=== PATIENT | male | born 1945 | race Caucasian/White ===

== ENCOUNTER 2017-12-30 13:59 | Outpatient (CLI) | payer MEDICARE ==
--- NOTE | 2017-12-31 03:36 | XRAY Report ---
Procedure Date: 12/30/2017 Accession Number: [id number] / [id number] Procedure: XRS - Knee 3 View RT CPT Code: FULL RESULT: EXAM: Knee 3 View RT DATE: 12/30/2017 2:27 PM CLINICAL HISTORY: TRAUMATIC EFFUSION RT. KNEE COMPARISON: None. TECHNIQUE: 3 views. FINDINGS: Bones: Normal. No fractures or bone lesions. Joints: Moderate osteoarthritis. Moderate effusion. Soft Tissues: Normal. No soft tissue swelling. IMPRESSION: Moderate osteoarthritis, with a moderate effusion. No evidence of acute fracture. RADIA
== END 2017-12-30 14:00 | disposition home or self-care (01) ==
LOC: DI.S 13:59
PROVIDERS: ATTEND Internal Medicine
DX: M17.11 Unilateral primary osteoarthritis, right knee (principal); M25.461 Effusion, right knee

== ENCOUNTER 2019-06-27 17:00 | Emergency (ER) | payer MEDICARE, OTHER ==
[2019-06-27] MEDS ORDERED: ACETAMINOPHEN 1,000 MG/100 ML 100 ML IV STA (17:25)
[2019-06-27] MEDS ORDERED: SODIUM CHLORIDE 0.9% 1,000 ML IV ONE ×2 (17:25)
--- NOTE | 2019-06-27 17:32 | ED Physician Documentation ---
History of Present Illness - Stated complaint Stated Complaint: NECK PX - Chief complaint Chief Complaint: General - History obtained from History obtained from: Patient, Family - History of Present Illness Pain level max: 8 Pain level now: 8 Improved by: rest Worsened by: movement - Additonal information Additional information: 74-year-old male presents to the emergency department stating that he has been having headaches and neck pain for the past 3 weeks. Does not recall any trau ma. He saw his primary care provider today who referred him here for evaluation. His states that he has been feeling weak lately. Has had a dry cough. No fevers at home that they are aware of. Has not taken anything for the pain. No focal neurological deficits. No numbness or tingling. No recent travel. Review of Systems Ten Systems: 10 systems reviewed and negative Constitutional: reports: Fever Ears: denies: Ear pain Nose: denies: Rhinorrhea / runny nose, Congestion Throat: denies: Sore throat Cardiac: denies: Chest pain / pressure Respiratory: denies: Dyspnea, Cough Skin: denies: Rash Musculoskeletal: denies: Back pain Neurologic: denies: Focal weakness, Numbness PD PAST MEDICAL HISTORY - Past Medical History Past Medical History: No - Past Surgical History Past Surgical History: No - Present Medications Home Medications: Ambulatory Orders Medication Instructions Recorded Confirmed Cefdinir 300 mg PO BID #20 capsule 06/27/19 Cyclobenzaprine [Flexeril] 10 mg PO TID PRN #20 tablet 06/27/19 Meloxicam [Mobic] 15 mg PO DAILY #14 tablet 06/27/19 - Allergies Allergies/Adverse Reactions: Allergies Allergy/AdvReac Type Severity Reaction Status Date / Time No Known Drug Allergies Allergy Verified 06/27/19 17:07 - Living Situation Living Situation: reports: With family Living Arrangement: reports: At home - Family History Family history: reports: Non contributory PD ED PE NORMAL - Vitals Vital signs reviewed: Yes - General General: Alert and oriented X 3, No acute distress, Well developed/nourished - HEENT HEENT: PERRL, Ears normal, Moist mucous membranes, Pharynx benign - Neck Neck: Other (Very stiff neck, unable to turn his head much in any direction.) - Cardiac Cardiac: RRR, Strong equal pulses - Respiratory Respiratory: No respiratory distress, Clear bilaterally - Abdomen Abdomen: Soft, Non tender, Non distended - Derm Derm: Warm and dry - Extremities Extremities: No edema, No calf tenderness / cord - Neuro Neuro: Alert and oriented X 3, addiction therapist 2-12 intact, No motor deficit, No sensory deficit, Normal speech - Psych Psych: Normal mood, Normal affect Results - Vitals Vitals: Vital Signs - 24 hr 06/27/19 06/27/19 06/27/19 17:01 19:07 21:00 Temperature 39.4 C H 36.9 C 38.6 C H Heart Rate 70 74 Respiratory 18 20 Rate Blood Pressure 151/104 H 141/91 H O2 Saturation 97 94 Oxygen O2 Source Room air - Labs Labs: Microbiology 06/27/19 19:15 CSF Culture - Preliminary Cerebral Spinal Fluid Laboratory Tests 06/27/19 06/27/19 06/27/19 17:30 17:40 17:40 WBC 8.5 RBC 4.30 L Hgb 13.0 L Hct 40.6 L MCV 94.4 H MCH 30.2 MCHC 32.0 RDW 12.2 Plt Count 252 MPV 9.1 Neut # (Auto) 6.4 Lymph # (Auto) 0.9 L [place] # (Auto) 1.1 H Eos # (Auto) 0.1 Baso # (Auto) 0.0 Absolute Nucleated RBC 0.00 Nucleated RBC % 0.0 PT 14.4 H INR 1.3 H APTT 29.3 Sodium Potassium Chloride Carbon Dioxide Anion Gap BUN Creatinine Estimated GFR (MDRD) Glucose Lactic Acid Calcium Total Bilirubin AST ALT Alkaline Phosphatase Total Protein Albumin Globulin Albumin/Globulin Ratio Lipase Urine Color Urine Clarity Urine pH Ur Specific [place] Urine Protein Urine Glucose (UA) Urine Ketones Urine Occult Blood Urine Nitrite Urine Bilirubin Urine Urobilinogen Ur Leukocyte Esterase Urine RBC Urine WBC Ur Squamous Epith Cells Urine Bacteria Ur Microscopic Review Urine Culture Comments CSF Color CSF Clarity Xanthrochromic CSF WBC CSF RBC CSF Cell Count Tube # CSF Glucose CSF Total Protein Influenza A (Rapid) Negative Influenza B (Rapid) Negative 06/27/19 06/27/19 06/27/19 17:40 17:40 19:15 WBC RBC Hgb Hct MCV MCH MCHC RDW Plt Count MPV Neut # (Auto) Lymph # (Auto) [place] # (Auto) Eos # (Auto) Baso # (Auto) Absolute Nucleated RBC Nucleated RBC % PT INR APTT Sodium 136 Potassium 4.1 Chloride 102 Carbon Dioxide 27 Anion Gap 7.0 BUN 23 H Creatinine 1.3 H Estimated GFR (MDRD) 54 L Glucose 140 H Lactic Acid 1.0 Calcium 9.8 Total Bilirubin 0.7 AST 14 ALT 10 Alkaline Phosphatase 67 Total Protein 7.4 Albumin 3.6 Globulin 3.8 Albumin/Globulin Ratio 0.9 L Lipase 31 Urine Color Urine Clarity Urine pH Ur Specific [place] Urine Protein Urine Glucose (UA) Urine Ketones Urine Occult Blood Urine Nitrite Urine Bilirubin Urine Urobilinogen Ur Leukocyte Esterase Urine RBC Urine WBC Ur Squamous Epith Cells Urine Bacteria Ur Microscopic Review Urine Culture Comments CSF Color COLORLESS CSF Clarity CLEAR Xanthrochromic ABSENT CSF WBC 1 CSF RBC 1 CSF Cell Count Tube # CSF TUBE# 3 CSF Glucose 73 H CSF Total Protein 69 H Influenza A (Rapid) Influenza B (Rapid) 06/27/19 21:44 WBC RBC Hgb Hct MCV MCH MCHC RDW Plt Count MPV Neut # (Auto) Lymph # (Auto) [place] # (Auto) Eos # (Auto) Baso # (Auto) Absolute Nucleated RBC Nucleated RBC % PT INR APTT Sodium Potassium Chloride Carbon Dioxide Anion Gap BUN Creatinine Estimated GFR (MDRD) Glucose Lactic Acid Calcium Total Bilirubin AST ALT Alkaline Phosphatase Total Protein Albumin Globulin Albumin/Globulin Ratio Lipase Urine Color YELLOW Urine Clarity CLEAR Urine pH 6.0 Ur Specific [place] >=1.030 H Urine Protein >=300 H Urine Glucose (UA) NEGATIVE Urine Ketones NEGATIVE Urine Occult Blood SMALL H Urine Nitrite POSITIVE H Urine Bilirubin NEGATIVE Urine Urobilinogen 0.2 (NORMAL) Ur Leukocyte Esterase NEGATIVE Urine RBC 0-5 Urine WBC 0-3 Ur Squamous Epith Cells NONE SEEN Urine Bacteria Moderate H Ur Microscopic Review INDICATED Urine Culture Comments INDICATED CSF Color CSF Clarity Xanthrochromic CSF WBC CSF RBC CSF Cell Count Tube # CSF Glucose CSF Total Protein Influenza A (Rapid) Influenza B (Rapid) - Rads (name of study) Head CT Radiology: Prelim report reviewed, EMP read contemporaneously, See rad report (1. No acute intracranial abnormality. 2. Low density white matter changes compatible with chronic small vessel ischemic disease. ) Cervical spine CT Radiology: Prelim report reviewed, EMP read contemporaneously, See rad report (No acute displaced fracture or malalignment. Multilevel degenerative disk disease most pronounced from C3-C7 levels with suggestion of severe bilateral neural foraminal stenosis at C3-C4, C4-C5 and C5-C6 levels. ) Chest x-ray Radiology: Prelim report reviewed, EMP read contemporaneously, See rad report (Normal single view chest. ) Procedures - Lumbar Puncture Position: Laying left side Location: L4-L5, Midline approach Anesthesia: Local lidocaine Other: Sterile prep and drape, Patient tolerated well, No complications, Other ( unable to obtain, procedure aborted.) PD MEDICAL DECISION MAKING - ED course Complexity details: reviewed results, re-evaluated patient, considered differential, d/w patient, d/w family ED course: 74-year-old male with a stiff neck for the past 3 weeks, worsening over the past 3 days. He is found to have a significant fever upon arrival here. Unclear etiology. He does have a UTI. He self catheterizes at home. Given Rocephin and will place on cefdinir for this. A lumbar puncture was performed, I had difficulty performing this procedure, therefore anesthesia was consulted and did obtain the CSF. He feels much better after pain medication and muscle relaxants in the emergency department. Appears to have spasm in the neck. Does not appear to have viral meningitis or bacterial meningitis. No evidence of encephalitis. Patient is frequently requesting to go home. At this point we will allow him to go home on antibiotics and muscle relaxants. Patient and family counseled regarding signs and symptoms for which I believe and urgent re- evaluation would be necessary. Patient with good understanding of and agreement to plan and is comfortable going home at this time This document was made in part using voice recognition software. While efforts are made to proofread this document, sound alike and grammatical errors may occur. Departure - Departure Disposition: 01 Home, Self Care Clinical Impression: Neck pain Fever Qualifiers: Fever type: unspecified Qualified Code(s): R50.9 - Fever, unspecified UTI (urinary tract infection) Qualifiers: Urinary tract infection type: acute cystitis Hematuria presence: without hematuria Qualified Code(s): N30.00 - Acute cystitis without hematuria Condition: Good Instructions: ED Fever Unconf Cause, ED UTI Cystitis Male Follow-Up: Srinath Beckham MD [Primary Care Provider] - Within 1 week Prescriptions: Cefdinir 300 mg PO BID #20 capsule Cyclobenzaprine [Flexeril] 10 mg PO TID PRN #20 tablet PRN Reason: Spasms Meloxicam [Mobic] 15 mg PO DAILY #14 tablet Comments: Take all antibiotics until gone. Return if you worsen. Continue to gently r gaston your neck to help stretch the muscles.
[2019-06-27 17:56] LABS: BASOPHILS % (AUTO) 0.4 %; EOSINOPHILS # (AUTO) 0.1 10^3/uL (0.0-0.7); EOSINOPHILS % (AUTO) 0.7 %; LYMPHOCYTES # (AUTO) 0.9 10^3/uL (1.5-3.5); LYMPHOCYTES % (AUTO) 10.2 %; MEAN CORPUSCULAR HEMOGLOBIN 30.2 pg (27.0-31.0); MEAN CORPUSCULAR VOLUME 94.4 fL (80.0-94.0); MEAN PLATELET VOLUME 9.1 fL (7.4-11.4); MONOCYTES # (AUTO) 1.1 10^3/uL (0.0-1.0); NEUTROPHILS # (AUTO) 6.4 10^3/uL (1.5-6.6); NEUTROPHILS % (AUTO) 75.2 %; PLT - PLATELET COUNT 252 10^3/uL (130-450); RED CELL DISTRIBUTION WIDTH 12.2 % (12.0-15.0); WHITE BLOOD COUNT 8.5 x10^3/uL (4.8-10.8)
[2019-06-27 18:01] LABS: INR 1.3 (0.8-1.2); PT - PROTHROMBIN TIME 14.4 secs (9.9-12.6)
[2019-06-27 18:06] LABS: ALBUMIN 3.6 g/dL (3.2-5.5); ALBUMIN/GLOBULIN RATIO 0.9 (1.0-2.2); BILIRUBIN,TOTAL 0.7 mg/dL (0.2-1.0); CALCIUM 9.8 mg/dL (8.5-10.3); CREATININE 1.3 mg/dL (0.6-1.2); TOTAL PROTEIN 7.4 g/dL (6.7-8.2)
[2019-06-27] MEDS ORDERED: MIDAZOLAM 2 MG/2 ML VIAL IVP STA (18:06)
[2019-06-27 18:08] LABS: PARTIAL THROMBOPLASTIN TIME 29.3 secs (24.9-33.3)
--- NOTE | 2019-06-27 18:34 | XRAY Report ---
Reason: fever Procedure Date: 06/27/2019 Accession Number: [id number] / [id number] Procedure: XR - Chest 1 View X-Ray CPT Code: 81625 Final Report FULL RESULT: EXAM: CHEST RADIOGRAPHY EXAM DATE: 06/27/2019 06:01 PM. CLINICAL HISTORY: Fever. Weakness. COMPARISON: None. TECHNIQUE: 1 view. FINDINGS: Lungs/Pleura: No focal opacities evident. No pleural effusion. No pneumothorax. Mediastinum: Within exam limitations, the cardiomediastinal contour is normal. Other: None. IMPRESSION: Normal single view chest. RADIA
[2019-06-27] MEDS ORDERED: LIDOCAINE 1% 2 ML VIAL ONE (18:50)
--- NOTE | 2019-06-27 18:57 | CT Report ---
Reason: headache, fever Procedure Date: 06/27/2019 Accession Number: [id number] / [id number] Procedure: CT - HEAD WO CPT Code: Final Report FULL RESULT: EXAM: CT HEAD EXAM DATE: 06/27/2019 06:08 PM. CLINICAL HISTORY: Headache, fever. COMPARISON: None. TECHNIQUE: Multiaxial CT images were obtained from the foramen magnum to the vertex. Reformats: Sagittal and coronal. IV contrast: None. In accordance with CT protocol optimization, one or more of the following dose reduction techniques were utilized for this exam: automated exposure control, adjustment of mA and/or KV based on patient size, or use of iterative reconstructive technique. 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 A small chronic left cerebellar hemisphere infarct also noted. Mild periventricular low density white matter changes seen. No evolving infarction or hemorrhage. Extraaxial Spaces: Normal for age. No subdural or epidural collections identified. Ventricles: Normal in size and position. Sinuses and Orbits: Imaged paranasal sinuses, orbits, and mastoids show no significant abnormality. Bones: No evidence of fracture or calvarial defect. Other: None. IMPRESSION: 1. No acute intracranial abnormality. 2. Low density white matter changes compatible with chronic small vessel ischemic disease. RADIA
--- NOTE | 2019-06-27 19:23 | ANESTHESIA PROCEDURE NOTE ---
Diagnosis: mental status changes Procedure: lumbar puncture, diagnostic Consent for Procedure(s) Verified and Reviewed: Yes Height and Weight: Height 6 ft 2 in Weight (kg) 95.254 kg Body Mass Index 26.9 Vital Signs: Temp Pulse Resp BP Pulse Ox 39.4 C H 70 18 151/104 H 97 06/27/19 17:01 06/27/19 17:01 06/27/19 17:01 06/27/19 17:01 06/27/19 17:01 Allergies No Known Drug Allergies Allergy (Verified 06/27/19 17:07) ASA classification: 2-Mild systemic disease Is this case an emergency?: Yes Anes. Monitoring and Equipment: Non-invasive BP, Sterile prep and drape Anes. Procedure Start Time: 07:05 Anes. Procedure Stop Time: 07:19 Procedure Notes: patient sitting, cloraprep, sterile technique. 20g needle from kit used, midline L3-4. no opening pressures done, clear CSF 2-3cc in each of 4 vials. patient tolerated well.
[2019-06-27 19:51] LABS: CSF - GLUCOSE 73 mg/dL (45-70)
[2019-06-27 19:54] LABS: CLARITY,CSF CLEAR (CLEAR); COLOR,CSF COLORLESS (COLORLESS); CSF TUBE # CSF TUBE# 3; CSF XANTHOCHROMIA ABSENT (ABSENT); RED BLOOD CELL,CSF 1 /mm^3 (0-1); WHITE BLOOD CELL,CSF 1 /mm^3 (0-5)
[2019-06-27] MEDS ORDERED: HYDROmorphone 1 MG/ML CARPUJECT IVP STA (20:04)
[2019-06-27] MEDS ORDERED: DEXAMETHASONE 10 MG/ML VIAL IVP STA (20:06)
--- NOTE | 2019-06-27 21:23 | CT Report ---
Reason: neck pain, no trauma Procedure Date: 06/27/2019 Accession Number: [id number] / [id number] Procedure: CT - CERVICAL SPINE WO CPT Code: Final Report FULL RESULT: EXAM: CT CERVICAL SPINE WITHOUT CONTRAST DATE: 06/27/2019 08:45 PM. HISTORY: Neck pain, no trauma. COMPARISONS: None. TECHNIQUE: Thin-section axial images were acquired of the cervical spine without contrast. Post-processing: Coronal and sagittal reformats. Other: None. In accordance with CT protocol optimization, one or more of the following dose reduction techniques were utilized for this exam: automated exposure control, adjustment of mA and/or KV based on patient size, or use of iterative reconstructive technique. FINDINGS: Alignment: No scoliosis or spondylolisthesis. Loss of disk height at multiple cervical levels most pronounced from C3-C7 levels. Bilateral facet arthropathy from C3-C7 levels with suggestion of severe bilateral neural foraminal stenosis at C3-C4, C4-C5 and C5-C6 levels. Bones: No fracture or bone lesion. Musculature: Normal. No fatty atrophy. Other: The paravertebral and prevertebral soft tissues are unremarkable. Mild biapical pleural parenchymal scarring. IMPRESSION: No acute displaced fracture or malalignment. Multilevel degenerative disk disease most pronounced from C3-C7 levels with suggestion of severe bilateral neural foraminal stenosis at C3-C4, C4-C5 and C5-C6 levels. RADIA
[2019-06-27 21:58] LABS: BILIRUBIN,URINE NEGATIVE (NEGATIVE); GLUCOSE, URINE (UA) NEGATIVE (NEGATIVE); KETONES,URINE (UA) NEGATIVE (NEGATIVE); LEUKOCYTE ESTERASE, URINE NEGATIVE (NEGATIVE); NITRITE,URINE POSITIVE (NEGATIVE); OCCULT BLOOD,URINE SMALL (NEGATIVE); PROTEIN,URINE >=300 mg/dL (NEGATIVE); UROBILINOGEN,URINE 0.2 (NORMAL) E.U./dL (NORMAL)
[2019-06-27 22:00] LABS: CLARITY,URINE CLEAR (CLEAR)
[2019-06-27 22:08] LABS: RBC,URINE 0-5 /HPF (0-5); SQUAMOUS EPITHELIAL CELL,UR NONE SEEN (<= Few)
[2019-06-27 22:09] LABS: BACTERIA,URINE Moderate /HPF (None Seen)
[2019-06-27] MEDS ORDERED: cefTRIAXone 1 GM VIAL IVP STA (22:13)
[2019-06-27 22:40] VITALS: BP 140/93
[2019-07-01 13:06] LABS: HSV 1 IGG TYPE SPECIFIC AB 2.33 index; HSV 2 IGG TYPE SPECIFIC AB <0.90 index
== END 2019-06-27 22:40 | disposition home or self-care (01) ==
LOC: ED 17:00
DX: M43.6 Torticollis (principal); R50.9 Fever, unspecified; N30.00 Acute cystitis without hematuria; M50.31 Other cervical disc degeneration, high cervical region; M48.02 Spinal stenosis, cervical region
CPT/HCPCS: 36415; 62270; 70450; 71045; 72125; 80053; 81001; 82945; 83605; 83690; 84157; 85025; 85610; 85730; 86695; 86696; 87040; 87070; 87086; 87205; 87275; 87276; 89051; 96361; 96365; 96375; 99284; J0131; J1170; 81003

== ENCOUNTER 2021-02-13 19:17 | Emergency (ER) | payer MEDICARE, OTHER ==
[2021-02-13 19:28] VITALS: BP 180/104
--- NOTE | 2021-02-13 19:31 | ED Physician Documentation ---
History of Present Illness - Stated complaint Stated Complaint: CATHADER - Chief complaint Chief Complaint: General - History obtained from History obtained from: Patient - History of Present Illness Timing: Today Pain level max: 0 Pain level now: 0 - Additonal information Additional information: 75-year-old male states that he normally self catheterizes himself at home but forgot his catheters in [place]. He is visiting for the next 2 days. He attempted to use a straw to self catheterize himself but found that he could not pass the straw. Therefore he came in to see if we could give him a catheter. Patient with no other complaints. Review of Systems Constitutional: denies: Fever GI: denies: Vomiting Neurologic: denies: Headache PD PAST MEDICAL HISTORY - Past Surgical History Past Surgical History: No - Present Medications Home Medications: Ambulatory Orders Medication Instructions Recorded Confirmed Cefdinir 300 mg PO BID #20 capsule 06/27/19 Cyclobenzaprine [Flexeril] 10 mg PO TID PRN #20 tablet 06/27/19 Meloxicam [Mobic] 15 mg PO DAILY #14 tablet 06/27/19 - Allergies Allergies/Adverse Reactions: Allergies Allergy/AdvReac Type Severity Reaction Status Date / Time No Known Drug Allergies Allergy Verified 02/13/21 19:28 - Social History Does the pt smoke?: No Smoking Status: Never smoker Does the pt drink ETOH?: No Does the pt have substance abuse?: No PD ED PE NORMAL - Vitals Vital signs reviewed: Yes - General General: Alert and oriented X 3, No acute distress - HEENT HEENT: Moist mucous membranes - Derm Derm: Warm and dry - Neuro Neuro: Alert and oriented X 3 Results - Vitals Vitals: Vital Signs - 24 hr 02/13/21 19:23 Temperature 36.7 C Heart Rate 71 Respiratory 14 Rate Blood Pressure 180/104 H O2 Saturation 96 Oxygen O2 Source Room air PD MEDICAL DECISION MAKING - ED course Complexity details: considered differential, d/w patient ED course: A Freitas catheter was given to the patient. No other complaints. No emergency medical condition at this time. This document was made in part using voice recognition software. While efforts are made to proofread this document, sound alike and grammatical errors may occur. Departure - Departure Disposition: 01 Home, Self Care Clinical Impression: Self-catheterizes urinary bladder Condition: Good Follow-Up: your,doctor in 1 week [Other] Comments: You were given a catheter tonight to perform self-catheterization at home. Return if you worsen. Discharge Date/Time: 02/13/21 19:38
== END 2021-02-13 19:38 | disposition home or self-care (01) ==
LOC: ED 19:17
DX: Z76.89 Persons encountering health services in other specified circumstances (principal)
CPT/HCPCS: 99281; 99282